=== PATIENT | female | born 2000 | race Native Hawaiian/Other Pacific Islander ===

== ENCOUNTER 2024-11-27 08:15 | Outpatient (REF) | payer OTHER, SELFPAY ==
--- NOTE | ~2024-11-27 | XR_ITS ---
EXAMINATION: XR KNEE 3 VIEWS RIGHT HISTORY: M25.561 - Pain in right knee COMPARISON: There are no prior studies available for comparison. FINDINGS: Three views of the right knee are submitted. Osseous mineralization is normal. There is no fracture or dislocation. The joint spaces are preserved. The soft tissues are unremarkable. There is no joint effusion. XR/XR knee RT 3V IMPRESSION: Unremarkable examination of the right knee. Electronically signed by: Jayjay Kelly MD 11/27/2024 03:47 PM EDT
== END 2024-11-27 08:16 | disposition home or self-care (01) ==
LOC: HO.HOSX 08:15
PROVIDERS: Visit Provider Orthopaedic Surgery
DX: S83.241A Other tear of medial meniscus, current injury, right knee, initial encounter (principal); M25.862 Other specified joint disorders, left knee; M25.461 Effusion, right knee; M25.561 Pain in right knee
CPT/HCPCS: 73562

== ENCOUNTER 2024-11-27 15:03 | Outpatient (AMB) | payer OTHER, SELFPAY ==
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
[2024-11-27 15:16] VITALS: BMI 32.8
--- OUTSIDE RECORDS SUMMARY | 2024-11-27 15:25 | XMS_ITS | Clinical Summary ---
Author Organization [facility] Address [address] [place] [address] Care Team Providers Care Lead Atg Developer Name Role Phone Unavailable Primary Care Provider Unavailabl e Allergies No known active allergies Medications No known medications Social History Tobacco Use Types Packs/Day Years Used Date Smoking Tobacco: Never Assessed Sex and Gender Information Value Date Recorded Sex Assigned at Female 01/05/2022 10:51 PM EDT Gender Identity Not on file Sexual Orientation Not on file Job Start Date Occupation Industry Not on file Not on file Not on file Last Filed Vital Signs Vital Sign Reading Time Taken Comments Blood Pressure 142/80 01/05/2022 10:58 PM EDT Pulse 98 01/05/2022 10:58 PM EDT Temperature 36.7 C (98 F) 01/05/2022 10:58 PM EDT Respiratory Rate 18 01/05/2022 10:58 PM EDT Oxygen Saturation 98% 01/05/2022 10:58 PM EDT Inhaled Oxygen Concentration - - Weight - - Height - - Body Mass Index - - Plan of Treatment Health Maintenance Due Date Last Done Comments Hepatitis B Vaccines (1 of 3 - 3-dose series) 2002 Hepatitis C Screening 2002 COVID-19 Vaccine (#1) 03/21/2003 Depression Screening 2014 Gonorrhea and Chlamydia Screening 09/20/2015 Preventative Health Evaluation 2020 DTap / Tdap / Td (1 - Tdap) 2021 Cervical Cancer Screening (P ap Smear) 09/20/2023 Influenza Vaccine (#1) 2024 Pneumococcal Vaccine Aged Out No long er eligible based on patient's age to complete this topic RSV Ped < 20 months Aged Out No longe r eligible based on patient's age to complete this topic
--- OUTSIDE RECORDS SUMMARY | 2024-11-27 15:25 | XMS_ITS | Clinical Summary ---
Author Organization [facility] Address [address] [place] [address] Phone Care Team Providers Care Sas Administrator Name Role Phone Unavailable Primary Care Provider Unavailabl e Surgical History Surgery Date Site/Laterality Comments OTHER SURGICAL HISTORY PROCEDURE: DENIES PREVIOUS SURGERY Medical History Medical History Date Comments Patient denies medical problems DX:Patient denies medical problems Cytomegaloviral disease (CMS /HCC V24, CMS/HCC V28) DX:Cytomegaloviral disease ( HCC) Family History Medical History Relation Name Comments No Known Problems Brother Aric No Known Problems Father Nakul Asthma Maternal Grandfather Romulo Diabetes Maternal Grandfather Romulo Hypertension Maternal Grandfather Romulo Hyperthyroidism Maternal Grandmother Edwige Other: panic attacks Maternal Grandmother Edwige No Known Problems Mother Georgeia Alzheimer's disease Paternal Grandfather Derrick early onset Diabetes Paternal Grandfather Derrick No Known Problems Paternal Grandmother Madonna No Known Problems Sister 1 Yamilex Other: scoliosis Sister 2 Jailynne Relation Name Status Comments Brother Aric Father Nakul Alive Maternal Grandfather Romulo Alive Maternal Grandmother Edwige Alive Mother Silkia Alive Paternal Grandfather Derrick Paternal Grandmother Madonna Sister 1 Yamilex Alive Sister 2 Jailynne Alive Social History Tobacco Use Types Packs/Day Years Used Date Smoking Tobacco: Never Smokeless Tobacco: Never Alcohol Use Standard Drinks/Week Comments No 0 (1 standard drink = 0.6 oz pur e alcohol) Comments Unknown Sex and Gender Information Value Date Recorded Sex Assigned at Not on file Legal Sex Female 2:56 PM EST Gender Identity Not on file Sexual Orientation Not on file Obstetrics History Last Filed Vital Signs Vital Sign Reading Time Taken Comments Blood Pressure 108/83 10/14/2022 3:39 PM EDT Pulse 72 10/14/2022 3:39 PM EDT Temperature - - Respiratory Rate - - Oxygen Saturation - - Inhaled Oxygen Concentration - - Weight 76.2 kg (168 lb) 10/14/2022 3:39 PM EDT Height 160 cm (5' 3 ) 10/14/2022 3:39 PM EDT Body Mass Index 29.76 10/14/2022 3:39 PM EDT Plan of Treatment Health Maintenance Due Date Last Done Comments Gonorrhea/Chlamydia Screening 2002 HPV Vaccines (1 - 3-dose series) 2017 Meningococcal B Vaccine (1 o f 2 - Standard) 2018 DTaP,Tdap,and Td Vaccines (1 - Tdap) 2021 Hepatitis B Vaccines (1 of 3 - 19+ 3-dose series) 2021 HIV Screening 03/18/2022 Hepatitis C Screening 03/18/2022 Social Influencers of Health Screening 03/18/2022 Cervical Cancer Screening: P ap Smear 09/20/2023 COVID-19 Vaccine (1 - 2023-2 5 season) 2023 Depression Screening 04/19/2024 Influenza Vaccine (#1) 2024 HIB Vaccines Aged Out No longer eligi ble based on patient's age to complete this topic Hepatitis A Vaccines Aged Out No long er eligible based on patient's age to complete this topic IPV Vaccines Aged Out No longer eligi ble based on patient's age to complete this topic MMR Vaccines Aged Out No longer eligi ble based on patient's age to complete this topic Meningococcal ACWY Vaccine Aged Out N o longer eligible based on patient's age to complete this topic Pneumococcal Vaccine: Pediat rics (0 to 5 Years) and At-Risk Patients (6 to 49 Years) Aged Out No longer eligible b ased on patient's age to complete this topic RSV Immunization Patients Un anny 20 months Aged Out No longer eligible b ased on patient's age to complete this topic Varicella Vaccines Aged Out No longer eligible based on patient's age to complete this topic Insurance CAROL ANN[employer]
== END 2024-11-27 15:23 | disposition home or self-care (01) ==
PROVIDERS: Visit Provider Orthopaedic Surgery
DX: S83.241A Other tear of medial meniscus, current injury, right knee, initial encounter (principal)
CPT/HCPCS: 99203

== ENCOUNTER → 2024-11-27 15:06 | Outpatient (BNV) | payer OTHER, SELFPAY | PROVIDERS: Visit Provider Radiology Diagnostic Radiology | DX: M25.561 Pain in right knee (principal) | CPT/HCPCS: 73562 ==

== ENCOUNTER → 2024-12-16 13:43 | Outpatient (BNV) | payer OTHER, SELFPAY | PROVIDERS: Visit Provider Radiology Diagnostic Radiology | DX: M22.8X1 Other disorders of patella, right knee (principal) | CPT/HCPCS: 73721 ==

== ENCOUNTER 2024-12-16 13:44 | Outpatient (REF) | payer OTHER, SELFPAY ==
--- NOTE | ~2024-12-16 | MR_ITS ---
CLINICAL HISTORY: S83.241A - Other tear of medial meniscus, current injury, right knee, in... MR right knee without contrast Comparison: DX/SR - XR KNEE 3 VIEWS RIGHT - 11/27/24 15:06 EDT Findings: The medial and lateral menisci are intact. The anterior and posterior cruciate ligaments are intact. The medial and lateral collateral ligaments are intact without periligamentous edema. No edema in the posterior lateral corner. The extensor mechanism is intact. No joint effusion. No Mcnamara's cyst. There is a mild amount of edema in the prefemoral fat pad adjacent to the lateral patellar facet (series 10, image 22 and series 8, image 11). Trace amount of edema in the infrapatellar fat pad of the superior/lateral aspect (series 8 images 15 through 16 and series 10, image 21). No fracture, stress reaction or osseous lesion. No hyaline cartilage disease in the patellofemoral, medial and lateral compartments. Impression: Normal menisci. No cruciate or collateral ligament tears. No osseous or cartilaginous abnormality. Mild amount of edema in the prefemoral fat pad and a trace amount of edema within the infrapatellar fat pad could be related to prior trauma or altered biomechanics. This document has been electronically signed by: Annie Jara MD on 12/19/2024 22:21:06
--- OUTSIDE RECORDS SUMMARY | 2024-12-16 13:51 | XMS_ITS | Clinical Summary ---
Author Organization [facility] Address [address] [place] [address] Care Team Providers Care Education Counselor Name Role Phone Unavailable Primary Care Provider [...]
--- OUTSIDE RECORDS SUMMARY | 2024-12-16 13:51 | XMS_ITS | Clinical Summary ---
Author Organization [facility] Address [address] [place] [address] Phone Care Team Providers Care Dowel Pointer Name Role Phone Unavailable Primary Care Provider [...]
== END 2024-12-16 13:45 | disposition home or self-care (01) ==
LOC: HO.MRI 13:44
PROVIDERS: Visit Provider Orthopaedic Surgery
DX: S83.241A Other tear of medial meniscus, current injury, right knee, initial encounter (principal)
CPT/HCPCS: 73721

== ENCOUNTER 2025-01-09 08:52 | Outpatient (AMB) | payer OTHER, SELFPAY ==
--- NOTE | 2025-01-09 08:57 | MHC.OFFVIS ---
Vital Signs 01/09/25 08:58 Height 5 ft 3 in Weight 185 lb BMI 32.8 Intake Visit Reasons: OV- Right Knee MRI Review. Intake Note: Liseth is a 24 year old female who presents today as a MRI Review of the right knee, 12/19/24. The patient reports mild intermittent discomfort in her right knee. She continues with her physical therapy exercises. Allergies No Known Allergies Allergy (Verified 01/09/25 08:59) Medication List - Last Reconciled 01/09/25 by Linden Hollingsworth MD No Known Home Meds [facility] Social History (Updated 01/09/25 @ 09:00 by Cassidy Barcenas) Alcohol intake: never Patient Tobacco Use Status: Current everyday Tobacco user Use of substances other than those prescribed or required for medical reasons: Yes Substance Use Type: Marijuana Current occupational status: unemployed Physical Exam Vital Signs: BMI result Body Mass Index 32.8 Extrem Other: Right knee examination shows a minimal effusion, minimal crepitus with range of motion, minimal discomfort with range of motion, no instability Results Reviewed Results Reviewed: MRI of the patient's right knee shows minimal degenerative changes, no evidence of meniscus or ligamentous injury Assessment & Plan Assessment & Plan (1) Right knee pain: Code(s): M25.561 - Pain in right knee Category: Medical Plan Liseth presents with intermittent right knee discomfort most likely due to soft tissue and bony contusion. I did give the patient a prescription for a Medrol Dosepak. We will hold off on an injection at this time. She will continue with her physical therapy exercises. She will follow up with me on an as-needed basis should her symptoms not plateau at an unacceptable level over the next few months. I spent 21 minutes in reviewing the patient's records and imaging studies, seeing the patient and documenting in the medical record. Medications: New methylprednisolone (Medrol (Primitivo)) PO PER PKG DIR 21 ea 0RF Coding Level of Care Code Est Pt Level 3 (54682) Complex EM visit Add On G2211 Diagnoses Right knee pain M25.561
[2025-01-09 08:58] VITALS: BMI 32.8
--- OUTSIDE RECORDS SUMMARY | 2025-01-09 10:06 | XMS_ITS | Clinical Summary ---
Author Organization [facility] Address [address] [place] [address] Phone Care Team Providers Care Visual Basic Developer Name Role Phone Unavailable Primary Care [...] Cervical Cancer Screening: P ap Smear 09/20/2023 Depression Screening 04/19/2024 COVID-19 Vaccine (1 - 2023-2 5 season) 2024 Influenza Vaccine (#1) 2024 HIB Vaccines Aged [...]
--- OUTSIDE RECORDS SUMMARY | 2025-01-09 10:06 | XMS_ITS | Clinical Summary ---
Author Organization [facility] Address [address] [place] [address] Care Team Providers Care Casey Saw Operator Name Role Phone Unavailable Primary Care Provider [...]
== END 2025-01-09 09:11 | disposition home or self-care (01) ==
LOC: HO.HOS 08:53
PROVIDERS: Visit Provider Orthopaedic Surgery
DX: M25.561 Pain in right knee (principal)
CPT/HCPCS: 99213